=== PATIENT | male | born 1955 | race Caucasian/White ===

== ENCOUNTER → 2016-08-06 | Outpatient (CLI) | payer BC, OTHER | LOC: M WUC 08:40 | PROVIDERS: ATTEND Urology | DX: R35.1 Nocturia (principal) ==

== ENCOUNTER → 2017-01-07 | Outpatient (CLI) | payer OTHER, BC ==
--- NOTE | 2017-01-07 15:34 | REP ---
MRI THORACIC SPINE WITHOUT CONTRAST: HISTORY: Back pain. COMPARISON: 04/13/2004 A small left paracentral disc protrusion is present at the T3-4 level. There is minimal effacement of the thecal sac without spinal cord compression. The T3 neural foramina are patent. A small central disc protrusion is present at the T 6-7 level. There is minimal effacement of the thecal sac without spinal cord compression. The T6 neural foramina are patent. A small central disc protrusion is present at the T7-8 level. There is minimal effacement of the thecal sac without spinal cord compression. The T7 neural foramina are patent. A small paracentral disc protrusion is present at the T9-10 level. There is minimal effacement of the thecal sac without spinal cord compression. The T9 neural foramina are patent. A disc bulge is present at the T10-11 level. There is minimal effacement of the thecal sac without spinal cord compression. The T10 neural foramina are patent. There is no other disc bulge or herniation. The remaining neural foramina are patent. The spinal cord is normal in signal intensity. There is loss of height of several mid and lower thoracic intervertebral discs. Areas of increased signal intensity on T2-weighted images are present in the endplates of several mid and lower thoracic vertebral bodies. This represents degenerative change. IMPRESSION: 1. Small disc protrusions at the T3-4, T6-7, T7-8 and T9-10 levels without spinal cord compression. The disc protrusions at the T3-4, T6-7 and T9-10 levels are new. 2. Disc bulge at the T10-11 level without spinal cord compression. This is a new finding. Signed by Chaitanya Brooks MD 01/07/2017 03:41 P
== END ==
LOC: M PLARAD 13:58
PROVIDERS: ATTEND Neurological Surgery
DX: G89.0 Central pain syndrome (principal); M51.24 Other intervertebral disc displacement, thoracic region

== ENCOUNTER → 2017-08-08 | Outpatient (CLI) | payer OTHER, BC | LOC: M PLARAD 13:47 | DX: G89.0 Central pain syndrome (principal); M51.26 Other intervertebral disc displacement, lumbar region; M47.892 Other spondylosis, cervical region; Z98.1 Arthrodesis status | CPT/HCPCS: 72141 ==

== ENCOUNTER → 2017-08-10 | Outpatient (CLI) | payer OTHER, BC | LOC: M WUC 09:42 | DX: R35.1 Nocturia (principal) | CPT/HCPCS: 84153 ==

== ENCOUNTER → 2018-07-27 | Outpatient (CLI) | payer OTHER, BC | LOC: M WUC 08:11 | PROVIDERS: ATTEND Physician Assistant | DX: Z12.5 Encounter for screening for malignant neoplasm of prostate (principal) ==

== ENCOUNTER → 2019-09-21 | Outpatient (CLI) | payer OTHER ==
--- NOTE | 2019-09-21 17:39 | REP ---
MRI left shoulder without contrast: History: Strain of the rotator cuff left shoulder. Technique: Axial, oblique coronal, and oblique sagittal imaging planes utilized. T1 and T2-weighted scans were included with and without fat saturation. MRI findings: Cortical and medullary bone signal intensity are normal in the proximal humerus and scapula. There is some marrow edema in the distal clavicle at the AC joint. Hypertrophic osteoarthritic changes are seen at the AC joint. There is a small sliver of subacromial subdeltoid bursal fluid. There is a focal T2 hyperintense full-thickness distal supraspinatus cuff lesion. There is diffuse supraspinatus tendinosis proximal to this. The infraspinatus and subscapularis tendons appear intact. Biceps tendon is in the bony bicipital groove. Superior labrum appears intact. No anterior or posterior labral tear is appreciated. Impression: Findings consistent with full-thickness distal supraspinatus cuff tear. AC joint osteoarthritis marrow edema in the distal clavicle at the AC joint. Small subacromial subdeltoid bursal effusion. There is mild inferior acromion process spurring as well. Electronically Signed by Gordon Taylor MD 09/22/2019 01:34 P
== END ==
LOC: M PLARAD 15:17
PROVIDERS: ATTEND Orthopaedic Surgery
DX: M19.012 Primary osteoarthritis, left shoulder (principal); M75.52 Bursitis of left shoulder; M25.712 Osteophyte, left shoulder; S46.012D Strain of muscle(s) and tendon(s) of the rotator cuff of left shoulder, subsequent encounter

== ENCOUNTER → 2019-12-26 | Outpatient (CLI) | payer OTHER ==
[2019-12-28 04:07] LABS: PSA TOTAL 2.2 ng/mL (0.0-4.0)
== END ==
LOC: M WUC 11:06
PROVIDERS: ATTEND Nurse Practitioner
DX: N40.1 Benign prostatic hyperplasia with lower urinary tract symptoms (principal)

== ENCOUNTER → 2022-01-12 | Outpatient (CLI) | payer BC, OTHER ==
[~2022-01-12] MED LIST: ECOT81TA5 PO; LIVA4TAB PO; MELO15TA28 PO; OMEP-173 PO; SILO8CAP PO; [UNRECOGNIZED DRUG - CODE] PO
== END ==
LOC: M EKG 10:59
PROVIDERS: ATTEND Anesthesiology
DX: R06.83 Snoring (principal)

== ENCOUNTER → 2022-01-14 | Outpatient (CLI) | payer OTHER | LOC: M LABSMTC 09:46 | PROVIDERS: ATTEND Anesthesiology | DX: Z01.812 Encounter for preprocedural laboratory examination (principal); Z11.52 Encounter for screening for COVID-19 ==

== ENCOUNTER 2022-01-19 08:10 | Day surgery (SDC) | payer BC, OTHER ==
[~2022-01-19] VITALS: Ht 165.1 cm; Wt 95.7 kg
[~2022-01-19 08:10] MED LIST changes: +ceFAZolin SOD 2 GM in IV 1 EA IV ONE
[2022-01-19] MEDS ORDERED: MIDAZOLAM INJ 2MG/2ML VIAL (J2250 PER 1MG) As Ordered ONE (09:03)
[2022-01-19] MEDS ORDERED: SUGAMMADEX SODIUM 500 MG/5 ML VIAL (BRIDION) As Ordered ONE (09:03)
[2022-01-19] MEDS ORDERED: ROCURONIUM BROMIDE 50 MG/5 ML VIAL As Ordered ONE ×2 (09:03→10:43)
[2022-01-19] MEDS ORDERED: ONDANSETRON 4MG 2ML VIAL As Ordered ONE (09:03)
[2022-01-19] MEDS ORDERED: fentaNYL 100 MCG/2 ML INJECTION As Ordered ONE (09:03)
[2022-01-19] MEDS ORDERED: dexameTHASONE 4 MG/ML 1ML VIAL (J1100 PER 1MG) As Ordered ONE (09:03)
[2022-01-19] MEDS ORDERED: propofoL 200 MG/20 ML VIAL As Ordered ONE (09:03)
[2022-01-19] MEDS ORDERED: LR 1,000 ML IV SCH ×2 (09:15→11:15)
[2022-01-19] MEDS ORDERED: LIDOCAINE 2% 100MG/5ML SDV (FOR ANES.) As Ordered ONE (09:25)
[2022-01-19] MEDS ORDERED: BUPIVACAINE/EPIN 0.25% 30 ML VIAL As Ordered ONE (09:32)
[2022-01-19] MEDS ORDERED: ACETAMINOPHEN 1000MG 100ML IV BTL (OFIRMEV) (J0131 PER 10MG) As Ordered ONE (10:09)
[2022-01-19] MEDS ORDERED: PHENYLephrine 500MCG 5ML (100MCG/ML) SYRINGE As Ordered ONE (10:18)
[2022-01-19] MEDS ORDERED: KETOROLAC 60MG 2ML VIAL As Ordered ONE (11:03)
[2022-01-19] MEDS ORDERED: MORPHINE 2 MG/ML 1ML VIAL IV PRN (11:15)
[2022-01-19] MEDS ORDERED: oxyCODONE 5MG TAB PO PRN (11:15)
[2022-01-19] MEDS ORDERED: fentaNYL 100 MCG/2 ML INJECTION IV PRN (11:15)
[2022-01-19] MEDS ORDERED: ONDANSETRON 4MG 2ML VIAL IV PRN (11:15)
[2022-01-19 13:10] VITALS: BP 154/80
== END 2022-01-19 13:19 | disposition home or self-care (01) ==
LOC: M SDC 08:10
PROVIDERS: ATTEND Surgery
DX: K40.90 Unilateral inguinal hernia, without obstruction or gangrene, not specified as recurrent (principal); I10 Essential (primary) hypertension; K21.9 Gastro-esophageal reflux disease without esophagitis; Z85.46 Personal history of malignant neoplasm of prostate; Z79.899 Other long term (current) drug therapy
CPT/HCPCS: 49650; C1781; J0131; J0690; J1100; J1885; J2250; J2370; J2405; J3010; S2900

== ENCOUNTER → 2025-05-07 | Outpatient (CLI) | payer MEDICARE, BC ==
[~2025-05-07] MED LIST changes: -SILO8CAP PO; +SILO8CAP3 PO; -ceFAZolin SOD 2 GM in IV 1 EA IV ONE
== END ==
LOC: M RAD 15:50
PROVIDERS: ATTEND Physician Assistant
DX: R60.0 Localized edema (principal); R52 Pain, unspecified